=== PATIENT | female | born 1980 | race Caucasian/White ===

== ENCOUNTER 2016-04-18 15:38 | Inpatient (IN) | payer OTHER ==
[~2016-04-18 15:38] MED LIST: BUSPAR 10MG10 MG PO; HYDROXYZINE HCL10 MG PO; LOVENOX SY40 MG/0.4 SC; PAXIL 20 MG TAB20 MG PO; TRAMADOL HCL50 MG PO; VOLTAREN EC 7575 MG PO
[2016-04-18 17:47] LABS: HEMOGLOBIN 10.9 gm/dl (12.3-15.3); RED BLOOD COUNT 3.97 M/UL (4.00-5.10); WHITE BLOOD COUNT 8.4 K/UL (4.5-11.0)
[2016-04-19 07:19] LABS: HEMOGLOBIN 9.5 gm/dl (12.3-15.3); WHITE BLOOD COUNT 7.2 K/UL (4.5-11.0)
[2016-04-19 07:20] LABS: RED BLOOD COUNT 3.47 M/UL (4.00-5.10)
[2016-04-19] MEDS ORDERED: METOPROLOL SUCC25 MG PO (09:09)
[2016-04-20 05:11] LABS: HEMOGLOBIN 9.3 gm/dl (12.3-15.3); RED BLOOD COUNT 3.47 M/UL (4.00-5.10); WHITE BLOOD COUNT 7.6 K/UL (4.5-11.0)
[2016-04-22 05:34] LABS: HEMOGLOBIN 9.7 gm/dl (12.3-15.3); RED BLOOD COUNT 3.62 M/UL (4.00-5.10); WHITE BLOOD COUNT 9.2 K/UL (4.5-11.0)
[2016-04-23 06:46] LABS: HEMOGLOBIN 10.2 gm/dl (12.3-15.3); RED BLOOD COUNT 3.77 M/UL (4.00-5.10); WHITE BLOOD COUNT 8.1 K/UL (4.5-11.0)
--- NOTE | 2016-04-24 09:43 | NUR ---
patient increase b/p, asymptomatic. Dr. Napier aware, patient goes out to smoke. instructions provided of hypertension, safety issues- patient and spouse acknowleged. patient continues to go outside the facility and smoke
[2016-04-25 06:08] LABS: HEMOGLOBIN 11.7 gm/dl (12.3-15.3)
[2016-04-25 06:09] LABS: RED BLOOD COUNT 4.26 M/UL (4.00-5.10); WHITE BLOOD COUNT 10.6 K/UL (4.5-11.0)
--- NOTE | 2016-04-25 09:24 | NUR ---
PATIENT CONTINUE TO GO OUT AND SMOKE. SMOCKING CESSATION PROVIDED- ACKNOWLEDGED
--- NOTE | 2016-04-25 15:53 | NUR ---
informed Dr. Fajardo patient IV was discontinued when patient came back to the floor, that Dr. Napier ordered of fluids for patient to have. acknowledged and no order received.
--- NOTE | 2016-04-26 07:31 | NUR ---
PATIENT OFF THE FLOOR WITH HER
--- NOTE | 2016-04-26 10:07 | NUR ---
REPORTED TO DR. ESCAMILLA PATIENT INCREASE B/P. ACKNOWLEDGED
[2016-04-27 04:39] LABS: HEMOGLOBIN 11.1 gm/dl (12.3-15.3); RED BLOOD COUNT 4.08 M/UL (4.00-5.10); WHITE BLOOD COUNT 13.2 K/UL (4.5-11.0)
--- NOTE | 2016-04-27 07:22 | NUR ---
PATIENT OUT OF THE FLOOR FOR APPROX 1-2 HOURS OR LONGER. REFUSED TELEMETRY AND SCUDS.
--- NOTE | 2016-04-27 08:34 | NUR ---
WAS INFORMED PATIENT FELL IN THE BATHROOM WHILE SHAVING HER LEGS, REPORT OF LEFT HIP PAIN WITH NO VISUAL ABNORMALITIES NOTED. REPORTED THE ABOVE TO DR. ARIAS AND RECEIVED ORDER IF PATIENT CONT TO COMPLAIN OF LEFT HIP PAIN IN AN HOUR TO X-RAY LEFT HIP. PROVIDED PATIENT HISTORY TO DR. ARIAS.
--- NOTE | 2016-04-27 10:08 | NUR ---
PATIENT COMPLAINTS OF PAIN ON LEFT HIP PAIN SCALE OF 1-10, STATED 5. NO VISIBLE TRAUMA NOTED. PATIENT DROWSY AND SLEEPING A LOT, NO S/SX OF NON VERBAL PAIN- NO FACIAL GRIMANCES, NO MOANING AND GROANING NOTED. PATIENT APPEARS OF NO DISTRESS. ORDERED FOR X-RAY OF LEFT HIP PER DR. ARIAS.
--- NOTE | 2016-04-27 11:35 | NUR ---
patient awake and sitting up beside of bed, talking to her spouse. request for pain medicine
--- NOTE | 2016-04-27 12:20 | NUR ---
PATIENT OFF THE FLOOR TO SMOKE WITH SPOUSE AMBULATING WITH NO DIFFICULTY
[2016-04-27] MEDS ORDERED: NORVASC 5 MG TAB5 MG PO (19:50)
== END 2016-04-27 20:44 | disposition home or self-care (01) | DRG 683 ==
LOC: ER1 15:38 → ZEROF 23:15 → M/S 23:15
PROVIDERS: Emergency Medicine; Internal Medicine; Internal Medicine Nephrology; ADMIT Hospitalist
DX: N17.9 Acute kidney failure, unspecified (principal); E87.2 Acidosis; F19.20 Other psychoactive substance dependence, uncomplicated; B19.20 Unspecified viral hepatitis C without hepatic coma; I16.0 Hypertensive urgency; F41.9 Anxiety disorder, unspecified; M25.552 Pain in left hip; W18.2XXA Fall in (into) shower or empty bathtub, initial encounter; I12.9 Hypertensive chronic kidney disease with stage 1 through stage 4 chronic kidney disease, or unspecified chronic kidney disease; N18.3 Chronic kidney disease, stage 3 (moderate); K74.69 Other cirrhosis of liver; R31.9 Hematuria, unspecified; R63.4 Abnormal weight loss; R11.2 Nausea with vomiting, unspecified; R50.9 Fever, unspecified; F17.210 Nicotine dependence, cigarettes, uncomplicated; D64.9 Anemia, unspecified; G89.29 Other chronic pain; F32.9 Major depressive disorder, single episode, unspecified; R10.9 Unspecified abdominal pain; Z68.25 Body mass index [BMI] 25.0-25.9, adult; Z79.891 Long term (current) use of opiate analgesic; Z79.899 Other long term (current) drug therapy; Z86.79 Personal history of other diseases of the circulatory system; Z87.898 Personal history of other specified conditions; Z84.1 Family history of disorders of kidney and ureter; Z86.711 Personal history of pulmonary embolism; Z88.6 Allergy status to analgesic agent; Z88.0 Allergy status to penicillin; Z88.8 Allergy status to other drugs, medicaments and biological substances; Y93.89 Activity, other specified; Y92.9 Unspecified place or not applicable; Z28.21 Immunization not carried out because of patient refusal; Z84.89 Family history of other specified conditions; Z83.3 Family history of diabetes mellitus
CPT/HCPCS: 36415; 73502; 80048; 80053; 80074; 80202; 81001; 82150; 82436; 82550; 82570; 82607; 82728; 82746; 83516; 83540; 83550; 83690; 83735; 84133; 84156; 84165; 84300; 84703; 85025; 85027; 85610; 86039; 86060; 86140; 86160; 86162; 86225; 86334; 87040; 87086; 87390; 89050; 94664; 96361; 96365; 96366; 96375; 96376; 99285; C9113; J0360; J2270; J2405; J2550; J3370; J7030; J7050; J7070